=== PATIENT | female | born 1945 | race Caucasian/White ===

== ENCOUNTER 2017-03-04 22:44 | Inpatient (IN) ==
--- NOTE | 2017-03-04 23:00 | Emergency Department Note ---
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 had a modification within her medications only 1 of those medications has she made the change still waiting to fill her scripts for the other medications they stopped her Isorbid monohydrate and added a doubling of her Ranexa now she is weak and tired and nauseated and has no chest pressure no palpitations states she feels very sluggish and tired no energy apparently a home health nurse came to check on her and they checked her heart rate and blood pressure and advised her to come to the emergency room patient now presents with no symptoms other than feeling tired and no energy Pt Subjective Complaint: generalized weakness/fatigue Onset (ago): hour(s) (12) Duration: constant Location: generalized Migration: none Pain Severity: none Pain Scale: 0 Improves with: none Worsens with: none Context: new medication Associated symptoms: Denies: chest pain, confusion, dark stools, diaphoresis, dysuria, easy bruising, fever/chills, headaches, loss of appetite, nausea/ vomiting, myalgias, rash, shortness of breath, syncope - Related Data Home Medications Medication Instructions Recorded Confirmed Clopidogrel [Plavix] 75 mg PO DAILY 04/26/16 03/04/17 Nitroglycerin [Nitrostat] 0.4 mg SL AD PRN 04/26/16 03/04/17 Aspirin [Lo-Dose Aspirin EC] 81 mg PO DAILY 07/21/16 03/04/17 Furosemide [Lasix] 40 mg PO DAILY 07/21/16 03/04/17 GlipiZIDE [Glipizide ER] 2.5 mg PO DAILY 07/21/16 03/04/17 Metoprolol [Lopressor] 50 mg PO BID 07/21/16 03/04/17 SitaGLIPtin [Januvia] 100 mg PO DAILY 07/21/16 03/04/17 Allopurinol [Zyloprim 100 MG] 100 mg PO DAILY 11/22/16 03/04/17 Ferrous Sulfate [Iron] 325 mg PO DAILY 11/22/16 03/04/17 Potassium Chloride [K-Tab ER] 20 meq PO DAILY 11/22/16 03/04/17 Rosuvastatin [Crestor] 40 mg PO HS 11/22/16 03/04/17 amLODIPine [Norvasc] 10 mg PO DAILY 11/22/16 03/04/17 Docusate Sodium [Colace] 100 mg PO BID 03/04/17 03/04/17 Ranolazine [Ranexa] 1,000 mg PO BID 03/04/17 03/04/17 Sennosides [Senokot] 8.6 mg PO DAILY 03/04/17 03/04/17 Previous Rx's Medication Instructions Recorded Omeprazole [PriLOSEC] 20 mg PO DAILY #30 capsule. 05/09/16 Allergies Allergy/AdvReac Type Severity Reaction Status Date / Time atorvastatin [From Lipitor] AdvReac See Verified 11/22/16 17:22 Comments All systems ED: reviewed and negative except as stated. Constitutional: Denies: fever, chills, weakness Eyes: Denies: eye pain ENT ED: Denies: ear pain Cardiovascular: Reports: palpitations, syncope. Denies: chest pain Respiratory: Denies: cough, dyspnea Gastrointestinal: Denies: abdominal pain Genitourinary: Denies: urgency Musculoskeletal: Denies: back pain Integumentary: Denies: rash Neurological: Denies: headache Psychiatric: Denies: anxiety Endocrine: Denies: fatigue Hematological/Lymphatic: Denies: easy bleeding Past Medical History - Past Medical History Attestation: Yes The following information was validated with the patient. 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 - Social History Smoking Status: Never smoker Smokeless Tobacco Status: No Alcohol use: Reports: none Drug use: Reports: none Physical Exam - General Limitations: no limitations General appearance: alert, in no apparent distress - Head Head exam: atraumatic, normocephalic, normal inspection - Eye Eye exam: Present: normal appearance, PERRL, EOMI - ENT ENT exam: normal exam, normal oropharynx, mucous membranes moist, normal external ear exam - Neck Neck exam: Present: normal inspection, full ROM, trachea midline - Chest Chest inspection: Present: normal inspection, symmetric chest wall rise - Respiratory Respiratory exam: Present: normal lung sounds bilaterally - Cardiovascular Cardiovascular exam: Present: bradycardia, normal heart sounds - Abdominal Exam Abdominal exam: Present: soft, Non-Tender, normal bowel sounds. Absent: mass, pulsatile mass - Extremities Exam Extremities exam: Present: normal inspection, full ROM, normal capillary refill. Absent: tenderness, joint swelling - Expanded Lower Extremity Exam Neurovascular/Tendon exam: Present: normal capillary refill, normal fine/light touch Gait: observed and normal - Back Exam Back exam: Present: normal inspection, full ROM. Absent: muscle spasm - Neurological Exam Neurological exam: Present: alert, oriented X3, CN II-XII intact, normal gait - Psychiatric Psychiatric exam: Present: normal affect, normal mood - Skin Skin exam: Present: warm, dry, intact, normal color Course Course Narrative: Seen and examined laboratory data started patient is asymptomatic other than feeling tired at this time patient is tolerating a heart rate of 33-35 blood pressures maintaining stability 130s over 40s and O2 sats are 95% with respiratory rate of 20 - Reevaluation(s) Reevaluation #1: Results have returned and the patient was then transferred to [facility] I spoke with Dr. James most likely this is result of the Ranexa and the renal insufficiency/acute renal failure which is causing combination of complications of the Ranexa or vice versa as result that she has seen nephrology in the past hold all medications at this time admitted for observation at this time a shot aware that if condition worsens will be transferred immediately to [facility] Vital Signs Temperature 97.2 F L 03/04/17 22:47 Pulse Rate 38 03/04/17 22:47 Respiratory Rate 16 03/04/17 22:47 Blood Pressure 123/68 03/04/17 22:47 O2 Sat by Pulse Oximetry 99 03/04/17 22:47 Temperature 97.2 F L 03/04/17 22:50 Pulse Rate 38 03/04/17 22:50 Respiratory Rate 16 03/04/17 22:50 Blood Pressure 123/68 03/04/17 22:50 O2 Sat by Pulse Oximetry 99 03/04/17 22:50 Oxygen Delivery Oxygen Delivery Room Air Weakness - Differential Diagnosis Differential Diagnosis: Likely: acute myocardial infarction, dehydration, medication effect, metabolic - Medical Records Medical records reviewed: Yes I reviewed the patient's medical records. - Lab Data Lab results reviewed: Yes I reviewed the patient's lab results. Result diagrams: 03/04/17 23:15 03/04/17 23:15 Lab Results 03/04/17 03/04/17 03/04/17 Range/Units 23:15 23:15 23:15 WBC 11.7 H (4.3-11.1) K/mcL RBC 3.67 L (3.82-4.97) M/mcL Hgb 10.5 L (11.5-15.4) g/dL Hct 31.5 L (35.3-44.9) % MCV 85.8 (83.0-100.0) fL MCH 28.6 (28.0-33.3) pg MCHC 33.3 (31.6-35.5) g/dL RDW 16.3 H (11.5-14.5) % Plt Count 245 (140-400) K/mcL MPV 10.4 (9.4-12.4) fL Immature Gran % 0.5 (0-4) % Seg Neutrophils % 81.6 % Lymphocytes % 10.2 % Monocytes % 6.8 % Eosinophils % 0.6 % Basophils % 0.3 % Neutrophils # 9.6 H (1.6-8.9) K/mcL Lymphocytes # 1.2 (0.6-4.6) K/mcL Monocytes # 0.8 (0.0-1.3) K/mcL Eosinophils # 0.1 (0.0-0.6) K/mcL Basophils # 0.0 (0.0-0.2) K/mcL PT 12.0 (9.4-12.1) Seconds INR 1.1 APTT 28.4 (26.0-36.0) Seconds Sodium 135 L (136-145) mEq/L Potassium 5.4 H (3.5-4.5) mEq/L Chloride 99 (98-109) mEq/L Carbon Dioxide 19 (19-29) mEq/L BUN 45 H (7-20) mg/dL Creatinine 2.83 H (0.57-1.11) mg/dL Est GFR ( Amer) 20 L (> 60) Est GFR (Non-Af Amer) 16 L (> 60) BUN/Creatinine Ratio 16 (6-26) Glucose 257 H (70-99) mg/dL Calculated Osmolality 300 (280-300) Calcium 9.8 (8.6-10.8) mg/dL Magnesium 3.1 H (1.6-2.6) mg/dL Troponin I (0-0.03) ng/mL B-Natriuretic Peptide (0-100) pg/mL 03/04/17 03/04/17 Range/Units 23:15 23:15 WBC (4.3-11.1) K/mcL RBC (3.82-4.97) M/mcL Hgb (11.5-15.4) g/dL Hct (35.3-44.9) % MCV (83.0-100.0) fL MCH (28.0-33.3) pg MCHC (31.6-35.5) g/dL RDW (11.5-14.5) % Plt Count (140-400) K/mcL MPV (9.4-12.4) fL Immature Gran % (0-4) % Seg Neutrophils % % Lymphocytes % % Monocytes % % Eosinophils % % Basophils % % Neutrophils # (1.6-8.9) K/mcL Lymphocytes # (0.6-4.6) K/mcL Monocytes # (0.0-1.3) K/mcL Eosinophils # (0.0-0.6) K/mcL Basophils # (0.0-0.2) K/mcL PT (9.4-12.1) Seconds INR APTT (26.0-36.0) Seconds Sodium (136-145) mEq/L Potassium (3.5-4.5) mEq/L Chloride (98-109) mEq/L Carbon Dioxide (19-29) mEq/L BUN (7-20) mg/dL Creatinine (0.57-1.11) mg/dL Est GFR ( Amer) (> 60) Est GFR (Non-Af Amer) (> 60) BUN/Creatinine Ratio (6-26) Glucose (70-99) mg/dL Calculated Osmolality (280-300) Calcium (8.6-10.8) mg/dL Magnesium (1.6-2.6) mg/dL Troponin I 0.01 (0-0.03) ng/mL B-Natriuretic Peptide 1180 H (0-100) pg/mL - Radiology Data Radiology results reviewed: Yes I reviewed the patient's radiology results. - EKG Data EKG attestation: Yes I reviewed and interpreted this EKG. EKG results narrative: Sinus bradycardia rate 35 no P waves noted could be an underlying atrial fib QRS 116 QT 524 axis -20 I do not this see any P waves buried within the complexes or the P waves are just says of a supraventricular rhythm Critical Care Time Critical Care Time: Yes Total Critical Care Time: 40 Attestation: Critical care performed:40mins due to bradycardia symptomatic concerns are medication or metabolic-induced also considerations are for that of this being cardiac event consultations with Dr. James management of the patient's hyperkalemia as well as electrolyte imbalance 2 resolve the bradycardia Time is exclusive of separately billable procedures. Time includes: direct patient care, patient reassessment, coordination of patient care, interpretation of data (laboratory data, radiology data, and respiratory data), review of patient's medical records, medical consultation and documentation of patient care. Procedures included in critical care time: Procedures excluded from critical care time:
[2017-03-04] MEDS ORDERED: Ondansetron ODT 4 MG TAB.RAPDIS SL ONE (23:15)
[2017-03-04 23:25] LABS: Basophils % 0.3 %; Eosinophils # 0.1 K/mcL (0.0-0.6); Eosinophils % 0.6 %; Hematocrit 31.5 % (35.3-44.9); Hemoglobin 10.5 g/dL (11.5-15.4); Immature Granulocytes % 0.5 % (0-4); Lymphocytes # 1.2 K/mcL (0.6-4.6); Lymphocytes % 10.2 %; Mean Corpuscular HGB Conc 33.3 g/dL (31.6-35.5); Mean Corpuscular Hemoglobin 28.6 pg (28.0-33.3); Mean Corpuscular Volume 85.8 fL (83.0-100.0); Mean Platelet Volume 10.4 fL (9.4-12.4); Monocytes # 0.8 K/mcL (0.0-1.3); Monocytes % 6.8 %; Neutrophils # 9.6 K/mcL (1.6-8.9); Platelet Count 245 K/mcL (140-400); Red Blood Count 3.67 M/mcL (3.82-4.97); Red Cell Distribution Width 16.3 % (11.5-14.5); Segmented Neutrophils % 81.6 %
[2017-03-04 23:33] LABS: INR 1.1
[2017-03-04 23:35] LABS: Activated Partial Thrombo Time 28.4 Seconds (26.0-36.0)
[2017-03-04 23:44] LABS: Calcium 9.8 mg/dL (8.6-10.8); Magnesium 3.1 mg/dL (1.6-2.6); Potassium 5.4 mEq/L (3.5-4.5)
[2017-03-05] MEDS ORDERED: *HR* Dextrose 50 % in Water (Syg) 50 ML SYRINGE IVP PRN (00:44)
[2017-03-05] MEDS ORDERED: Ondansetron ODT 4 MG TAB.RAPDIS SL PRN (00:44)
[2017-03-05] MEDS ORDERED: Dextrose Gel 15 GM PO PRN ×2 (00:44)
[2017-03-05] MEDS ORDERED: D5% in Water 1,000 ML IVC PRN (00:44)
[2017-03-05] MEDS ORDERED: Naloxone 0.4 MG/ML INJ IVP PRN (00:44)
[2017-03-05] MEDS: 0.9 % Sodium Chloride 1,000 ML IVC SCH ×2 (01:00→15:54)
[2017-03-05] MEDS: Insulin LISPRO 300 UNITS/3 ML VIAL SQ SCH ×3 (07:35→16:35)
[2017-03-05] MEDS: Aspirin Enteric Coated 81 MG Tablet PO SCH (08:40)
[2017-03-05] MEDS: *HR* GlipiZIDE XL (24 HR) 2.5 MG TABLET PO SCH (08:40)
[2017-03-05] MEDS: *HR* SitaGLIPtin 25 MG TABLET PO SCH (08:40)
[2017-03-05] MEDS: Sennosides 8.6 MG TABLET PO SCH (08:40)
[2017-03-05] MEDS ORDERED: Furosemide 40 MG TABLET PO SCH (09:00)
[2017-03-05 09:22] LABS: Calcium 9.2 mg/dL (8.6-10.8); Magnesium 3.1 mg/dL (1.6-2.6)
--- NOTE | 2017-03-05 11:16 | Internal Med History&Physical ---
Date of Encounter: 03/05/17 Time of Encounter: 10:45 Assessment and Plan (1) Symptomatic bradycardia Current visit: Yes Status: Acute Rhythm strip show junctional rhythm. Will hold Ranexa and metoprolol and continue to monitor. (2) Acute renal failure superimposed on stage 3 chronic kidney disease Current visit: Yes Status: Acute Will hold Lasix and give gentle IV hydration. (3) Hyperuricemia Current visit: No Status: Chronic We will check uric acid level in a.m. Continue allopurinol for now. (4) Hyperkalemia Current visit: Yes Status: Acute We will give IV fluids and hold supplemental potassium. Recheck labs in a.m. (5) Hypermagnesemia Current visit: Yes Status: Acute We will give IV fluids and recheck labs in a.m. (6) Neutrophilic leukocytosis Current visit: Yes Status: Acute Will check UA. Recheck labs in a.m. We will not give antibiotics at this time since she is asymptomatic. Internal Medicine - H&P: HPI Chief complaint: Bradycardia Admitted From: Home Plans for Post Hospital Care: Home History of present illness: Ms. Pelletier is a 72 year old female who was directed to come to emergency room after a home health nurse who was evaluating her in the home examined the patient when she complained she did not feel well. She had 2 episodes of diarrhea and 3 episodes of vomiting earlier in the day. Her heart rate was found by the nurse to be 35-40. She was evaluated in emergency room and was found to have bradycardia, hyperkalemia, hypermagnesemia, and elevated BN peptide. She was admitted to [facility] floor for ongoing care needs. She denies previous episodes of bradycardia. 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 She has known ASHD and has 7 coronary stents. Her most recent catheter was May 2017 [place] when a single stent was placed. She denies [place], heart failure DVT or pulmonary embolus. She has a history of hypertension. She denies pain or dyspnea at the present time. Past Med Surg Social Fam HX - Past Medical History Medical history: CHF, coronary artery disease, diabetes, hyperlipidemia, hypertension, myocardial infarction Psychiatric history: anxiety - Past Surgical History Surgical History: angioplasty/stent, appendectomy - Social History Smoking Status: Never smoker Smokeless Tobacco Status: No Alcohol use: none Drug use: none - Family History Father Living Status: Hx Family Cardiac Disorders: Yes Hx Family Endocrine Disorder: Yes (DM) Mother Adopted: No Family Member Ethnicity: Non- Living Status: Hx Family Cardiac Disorders: Yes (CHF) Hx Family Respiratory Disorders: No Hx Family Cancer: No Hx Family GI Disorders: No Hx Family Endocrine Disorder: Yes (Diabetes) Hx Family Neuromuscular Disorders: No Hx Family Neurologic Disorders: No Hx Family HEENT Disorders: No Hx Family Autoimmune Disorders: No Internal Medicine - H&P: Meds Clopidogrel [Plavix] 75 mg PO DAILY 04/26/16 [History] Nitroglycerin [Nitrostat] 0.4 mg SL AD PRN 04/26/16 [History] Omeprazole [PriLOSEC] 20 mg PO DAILY #30 capsule. 05/09/16 [Rx] Aspirin [Lo-Dose Aspirin EC] 81 mg PO DAILY 07/21/16 [History] Furosemide [Lasix] 40 mg PO DAILY 07/21/16 [History] GlipiZIDE [Glipizide ER] 2.5 mg PO DAILY 07/21/16 [History] Metoprolol [Lopressor] 50 mg PO BID 07/21/16 [History] SitaGLIPtin [Januvia] 100 mg PO DAILY 07/21/16 [History] Allopurinol [Zyloprim 100 MG] 100 mg PO DAILY 11/22/16 [History] Ferrous Sulfate [Iron] 325 mg PO DAILY 11/22/16 [History] Potassium Chloride [K-Tab ER] 20 meq PO DAILY 11/22/16 [History] Rosuvastatin [Crestor] 40 mg PO HS 11/22/16 [History] amLODIPine [Norvasc] 10 mg PO DAILY 11/22/16 [History] Docusate Sodium [Colace] 100 mg PO BID 03/04/17 [History] Ranolazine [Ranexa] 1,000 mg PO BID 03/04/17 [History] Sennosides [Senokot] 8.6 mg PO DAILY 03/04/17 [History] Allergies atorvastatin [From Lipitor] Adverse Reaction (Verified 11/22/16 17:22) See Comments body aches and pains All Systems PM: A 10-system review of systems was performed and is negative for pertinent findings except as documented above in the HPI. Review of systems: Gen.: Her weight has been stable past few months at approximately 72 kg. Cardiovascular: As per history of present illness Respiratory: She is a lifelong nonsmoker and denies known chronic lung disease. Chest CT done 04/29/2016 showed patchy bilateral groundglass opacities most prominently in the right upper lobe. GI: She denies disorders of her liver gallbladder or exocrine pancreas : She has CKD stage III. She saw a cover creaser on one occasion at [place] and was told she did not need to return. She denies other kidney or bladder disorders. Neurologic: She denies large distribution strokes or seizures Endocrine: She was diagnosed with DM 2 approximately 1979. She has hyperlipidemia but denies thyroid disease Hematology/oncology: She has anemia with testing done 03/29/2016 showing no factor deficiency. She denies internal malignancies Psychiatric: She has feelings of anxiety and depression at times but does not take medication for these [place] skeletal: She has DJD and hyperuricemia but denies osteoporosis. - Constitutional Vitals: Temp Pulse Resp BP Pulse Ox 97.9 F 40 16 125/54 96 03/05/17 06:48 03/05/17 07:13 03/05/17 06:48 03/05/17 06:48 03/05/17 06:48 Exam: Gen.: She is well-developed well-nourished female lying in bed who appears in no acute distress HEENT: Head is atraumatic and normocephalic. Eyes: EOMI. There is no scleral icterus. Mouth: Mucosa is moist. Neck: Supple and nontender. There is no thyromegaly or adenopathy noted. Heart: Regular without murmurs gallops or ectopics. She has bradycardia with rate approximately 40/m Lungs: No wheezes or crackles are heard. Abdomen: Soft and nontender. No masses or guarding are noted. Extremities: There is no cyanosis edema or clubbing noted. Dorsalis pedis and posterior tibial pulses are trace to 1+ palpable bilaterally. Neurologic: Mental status: She is talkative and a good historian. Cranial nerves: Smile is symmetric. Forehead wrinkles bilaterally. Tongue protrudes midline. EOMI. Motor: There is no pronator drift. Cerebellar: Finger to nose intact bilaterally. Skin: Warm and dry Internal Med - H&P Results - Labs CBC & Chem 7: 03/04/17 23:15 03/05/17 08:56 Labs: BMP 03/05/17 08:56 Sodium 133 L Potassium 5.0 H Chloride 98 Carbon Dioxide 21 BUN 46 H Creatinine 2.85 H Glucose 196 H Calcium 9.2 Cardiac Enzymes 03/05/17 Range/Units 08:56 Troponin I 0.01 (0-0.03) ng/mL
[2017-03-05] MEDS: Isosorbide MONOnitrate (24 HR) 60 MG TAB.ER.24H PO SCH (11:54)
[2017-03-05 19:17] LABS: Bilirubin,Urine Small (Negative); Blood,Urine Negative (Negative); Color,Urine Dark Yellow (Yellow); Glucose,Urine (UA) Normal (Normal); Ketones,Urine Negative (Negative); Leukocyte Esterase,Urine Negative (Negative); Nitrite,Urine Negative (Negative); PH,Urine 5.5 pH Units (5.0-8.0); Protein,Urine 100 mg/dL (Neg-Trace); Specific Gravity,Urine 1.025 (1.010-1.025); Urobilinogen,Urine Normal (Normal)
[2017-03-05 19:39] LABS: Clarity,Urine Cloudy (Clear)
[2017-03-05 19:48] LABS: Bacteria,Urine Many per hpf (None-Few); Hyaline Casts,Urine Many per lpf (None-Few); Squamous Epithelial Cell,Urine Many per lpf (None-Few)
[2017-03-05 20:04] LABS: Transitional Epi Cells,Urine Few per hpf (None-Few)
[2017-03-05 20:05] LABS: RBC,Urine 0-3 per hpf (0-3)
[2017-03-06] MEDS ORDERED: Mag Hydrox/Al Hydrox/Simeth 30 ML UDC PO PRN (01:01)
[2017-03-06] MEDS ORDERED: Nitroglycerin 0.4 MG TAB.SUBL SL PRN (01:01)
[2017-03-06] MEDS ORDERED: Furosemide 20 MG/2 ML VIAL IVP ONE ×4 (01:37→01:47)
[2017-03-06 01:43] LABS: ABG PCO2 30 mmHg (35-45); ABG PH 7.41 pH Units (7.32-7.45)
[2017-03-06 01:44] LABS: ABG Base Excess -5.4 mEq/L (-2.0 to 3.0); ABG HCO3 19.2 mEQ/L (21-27); ABG PO2 43 mmHg (85-104); ABG TCO2 20.2 mEq/L (20-26)
[2017-03-06 01:45] LABS: ABG Oxygen Saturation 80 % (95-98)
--- NOTE | 2017-03-06 01:56 | Internal Med Progress Note ---
Date of Encounter: 03/06/17 Time of Encounter: 01:54 - Time Spent With Patient Greater than 35 minutes (Patient was evaluated patient was noted to have crackles and rales throughout the lung saavedra placed her on BiPAP gave her an additional 20 mg of Lasix and also had Harkins catheter placed chest x-ray was ordered for reevaluation of the lung saavedra) - Subjective Interval history: pt showed signifigant improval post bipap and repeat ekg showed resolution to baseline and chest xray showed pulmonary edema asper the radiologist 1 view portable - Constitutional Vitals: Temp Pulse Resp BP Pulse Ox 98.1 F 81 18 147/66 93 03/06/17 00:49 03/06/17 00:49 03/06/17 00:49 03/06/17 00:49 03/06/17 00:49 - Neck Neck exam general surgery: Present: full ROM - Respiratory Respiratory exam: Present: decreased breath sounds, prolonged expiratory phase, rales, respiratory distress, tachypnea - Cardiovascular Cardiovascular exam: Present: RRR - Expanded Lower Extremities Exam Hip exam: Absent: swelling Upper Leg exam: Absent: swelling Knee exam: Absent: swelling Lower Leg exam: Absent: swelling Ankle exam: Absent: swelling - Psychiatric Psychiatric exam: Present: anxious Internal Medicine: Result - Labs CBC & Chem 7: 03/04/17 23:15 03/05/17 08:56 Labs: BMP 03/05/17 08:56 Sodium 133 L Potassium 5.0 H Chloride 98 Carbon Dioxide 21 BUN 46 H Creatinine 2.85 H Glucose 196 H Calcium 9.2 Cardiac Enzymes 03/05/17 Range/Units 08:56 Troponin I 0.01 (0-0.03) ng/mL Urine 03/05/17 Range/Units 19:00 Urine Color Dark Yellow (Yellow) Urine Clarity Cloudy A (Clear) Urine pH 5.5 (5.0-8.0) pH Units Ur Specific [place] 1.025 (1.010-1.025) Urine Protein 100 H (Neg-Trace) mg/dL Urine Glucose (UA) Normal (Normal) mg/dL - ABG Interpretation ABG results: ABG ABG pH 7.41 pH Units (7.32-7.45) 03/06/17 01:37 ABG pCO2 30 mmHg (35-45) L 03/06/17 01:37 ABG pO2 43 mmHg (85-104) L* 03/06/17 01:37 ABG O2 Saturation 80 % (95-98) L 03/06/17 01:37 PT/INR, D-dimer PT 12.0 Seconds (9.4-12.1) 03/04/17 23:15 - EKG Data interpreted by ERMD Rhythm: other (Sinus rhythm interventricular conduction delay T-wave depression throughout the leads no ST segment elevation slight change from previous with strain pattern being noted rate 81 NJ-2 O2 QRS 142 QT 399 axis -16 patient's heart rate has improved significantly since previous admission record heart rate of 35) Consult Discharge Plan - Plan Referrals: Amy Roblero MD [Primary Care Provider] - 1 week
[2017-03-06 02:29] LABS: Blood Gas FiO2 99 %; Blood Gas Liter Flow 15 L/MIN
[2017-03-06 06:39] LABS: Basophils % 0.2 %; Eosinophils % 0.3 %; Hematocrit 26.8 % (35.3-44.9); Hemoglobin 9.1 g/dL (11.5-15.4); Immature Granulocytes % 0.7 % (0-4); Lymphocytes # 0.8 K/mcL (0.6-4.6); Lymphocytes % 7.8 %; Mean Corpuscular Hemoglobin 28.1 pg (28.0-33.3); Mean Corpuscular Volume 82.7 fL (83.0-100.0); Mean Platelet Volume 10.7 fL (9.4-12.4); Monocytes # 0.6 K/mcL (0.0-1.3); Monocytes % 6.1 %; Neutrophils # 8.4 K/mcL (1.6-8.9); Platelet Count 199 K/mcL (140-400); Red Blood Count 3.24 M/mcL (3.82-4.97); Red Cell Distribution Width 15.9 % (11.5-14.5); Segmented Neutrophils % 84.9 %
[2017-03-06 06:56] LABS: Albumin 3.4 g/dL (3.5-5.0); Albumin/Globulin Ratio 1.2 (1.1-2.2); Bilirubin,Total 0.5 mg/dL (0.2-1.2); Calcium 8.8 mg/dL (8.6-10.8); Globulin 2.9 g/dL (2.4-3.5); Magnesium 2.8 mg/dL (1.6-2.6); Potassium 4.5 mEq/L (3.5-4.5); Total Protein 6.3 g/dL (6.0-8.3); Uric Acid 5.8 mg/dL (2.6-6.0)
[2017-03-06] MEDS: Sennosides 8.6 MG TABLET PO SCH (07:41)
[2017-03-06] MEDS: Isosorbide MONOnitrate (24 HR) 60 MG TAB.ER.24H PO SCH (07:41)
[2017-03-06] MEDS: Aspirin Enteric Coated 81 MG Tablet PO SCH (07:42)
[2017-03-06] MEDS: *HR* GlipiZIDE XL (24 HR) 2.5 MG TABLET PO SCH (07:42)
[2017-03-06] MEDS: Insulin LISPRO 300 UNITS/3 ML VIAL SQ SCH ×4 (07:42→22:25)
[2017-03-06] MEDS: *HR* SitaGLIPtin 25 MG TABLET PO SCH (07:42)
--- NOTE | 2017-03-06 09:59 | Internal Med Progress Note ---
Date of Encounter: 03/06/17 Time of Encounter: 09:45 - Assessment and plan (1) Symptomatic bradycardia Current Visit: Yes Status: Acute Assessment and plan: March 06. Resolved. Continue to withhold Ranexa. We will restart metoprolol at lower dose. (2) Acute renal failure superimposed on stage 3 chronic kidney disease Current Visit: Yes Status: Acute Assessment and plan: March 06. Creatinine slightly improved. We will recheck labs in a.m. (3) Hyperuricemia Current Visit: No Status: Chronic Assessment and plan: March 06. Uric acid level acceptable at 5.8. Continue allopurinol. (4) Hyperkalemia Current Visit: Yes Status: Acute Assessment and plan: March 06. Resolved. Continue to hold supplemental potassium. Recheck labs in a.m. (5) Hypermagnesemia Current Visit: Yes Status: Acute Assessment and plan: March 06. Improved. Recheck labs in a.m. (6) Neutrophilic leukocytosis Current Visit: Yes Status: Acute Assessment and plan: March 06. WBC normalized but left shift still present. She remains afebrile. We will recheck labs in a.m. (7) Anemia Current Visit: Yes Status: Acute Assessment and plan: March 06. We will order anemia testing in a.m. Qualifiers: Anemia type: unspecified type Qualified Code(s): D64.9 - Anemia, unspecified - Subjective Interval history: March 06. 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 She had adequate diuresis response and her breathing now is back to baseline. EKG was ordered which showed nonspecific IVCD which resolved on follow-up EKG less than 2 hours later. She denies chest pain at any time. - Constitutional Vitals: Temp Pulse Resp BP Pulse Ox 98.8 F 83 24 135/68 99 03/06/17 06:35 03/06/17 06:35 03/06/17 06:35 03/06/17 06:35 03/06/17 06:35 Exam: She is resting comfortably in bed and appears in no acute distress. Heart is regular with rate approximately 80/m on telemetry. Lungs are clear. I reviewed her medications and lab results. Internal Medicine: Result - Labs CBC & Chem 7: 03/06/17 05:15 03/06/17 05:15 Labs: Short CBC 03/06/17 Range/Units 05:15 WBC 9.9 (4.3-11.1) K/mcL Hgb 9.1 L (11.5-15.4) g/dL Hct 26.8 L (35.3-44.9) % Plt Count 199 (140-400) K/mcL Neutrophils # 8.4 (1.6-8.9) K/mcL BMP 03/06/17 05:15 Sodium 130 L Potassium 4.5 Chloride 97 L Carbon Dioxide 19 BUN 46 H Creatinine 2.53 H Glucose 273 H Calcium 8.8 Liver Function 03/06/17 Range/Units 05:15 Total Bilirubin 0.5 (0.2-1.2) mg/dL AST 32 (5-34) Units/L ALT 28 (0-55) Units/L Alkaline Phosphatase 63 (38-126) Units/L Albumin 3.4 L (3.5-5.0) g/dL Urine 03/05/17 Range/Units 19:00 Urine Color Dark Yellow (Yellow) Urine Clarity Cloudy A (Clear) Urine pH 5.5 (5.0-8.0) pH Units Ur Specific [place] 1.025 (1.010-1.025) Urine Protein 100 H (Neg-Trace) mg/dL Urine Glucose (UA) Normal (Normal) mg/dL - ABG Interpretation ABG results: ABG ABG pH 7.41 pH Units (7.32-7.45) 03/06/17 01:37 ABG pCO2 30 mmHg (35-45) L 03/06/17 01:37 ABG pO2 43 mmHg (85-104) L* 03/06/17 01:37 ABG O2 Saturation 80 % (95-98) L 03/06/17 01:37 PT/INR, D-dimer PT 12.0 Seconds (9.4-12.1) 03/04/17 23:15 - Impressions Impressions Chest X-Ray 03/06/17 01:33 IMPRESSION: Findings likely represent progressive congestive heart failure. D/ / Nikos Bryant MD / Nikos Bryant MD Interpreting Provider: Nikos Bryant MD Consult Discharge Plan - Plan Referrals: Amy Roblero MD [Primary Care Provider] - 1 week
[2017-03-06] MEDS: *HR* Enoxaparin 30 MG/0.3 ML SYRINGE SQ SCH (14:57)
--- NOTE | 2017-03-06 18:18 | Electrocardiograph Report ---
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
--- NOTE | 2017-03-06 18:26 | Electrocardiograph Report ---
[address] [place], [place] [address] Test Date: 2017-03-06 Pat Name: Yolette Pelletier Department: 9202 Room: 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
--- NOTE | 2017-03-06 18:29 | Electrocardiograph Report ---
[address] [place], [place] [address] Test Date: 2017-03-04 Pat Name: Yolette Pelletier Department: [id number] Room: [facility] Gender: F Staff Radiologist: Zia : 1945 Requested By: Regina Montiel Order Number: [id number] Reading MD: Bessy Hernandez Measurements Intervals [place] Rate: 35 P: [place]: 0 QRS: -20 QRSD: 116 T: 13 QT: 524 QTc: 423 Interpretive Statements JUNCTIONAL ESCAPE RHYTHM IVCD NONSPECIFIC ST ABNORMALITIES Electronically Signed On 03-06-2017 18:27:44 EDT by Bessy Hernandez
[2017-03-07] MEDS: *HR* Enoxaparin 30 MG/0.3 ML SYRINGE SQ SCH (06:18)
[2017-03-07 06:39] LABS: Basophils % 0.2 %; Eosinophils # 0.2 K/mcL (0.0-0.6); Eosinophils % 2.6 %; Hematocrit 25.2 % (35.3-44.9); Hemoglobin 8.4 g/dL (11.5-15.4); Immature Granulocytes % 0.4 % (0-4); Lymphocytes # 1.1 K/mcL (0.6-4.6); Lymphocytes % 13.3 %; Mean Corpuscular HGB Conc 33.3 g/dL (31.6-35.5); Mean Corpuscular Hemoglobin 28.3 pg (28.0-33.3); Mean Corpuscular Volume 84.8 fL (83.0-100.0); Mean Platelet Volume 10.8 fL (9.4-12.4); Monocytes # 0.7 K/mcL (0.0-1.3); Neutrophils # 6.1 K/mcL (1.6-8.9); Platelet Count 166 K/mcL (140-400); Red Blood Count 2.97 M/mcL (3.82-4.97); Red Cell Distribution Width 16.3 % (11.5-14.5); Segmented Neutrophils % 75.5 %
[2017-03-07 06:51] LABS: Calcium 9.2 mg/dL (8.6-10.8); Magnesium 2.6 mg/dL (1.6-2.6); Potassium 4.6 mEq/L (3.5-4.5)
[2017-03-07] MEDS ORDERED: MOM Conc 10 ML UD.LIQ PO PRN (08:12)
[2017-03-07] MEDS: *HR* SitaGLIPtin 25 MG TABLET PO SCH (08:14)
[2017-03-07] MEDS: *HR* GlipiZIDE XL (24 HR) 2.5 MG TABLET PO SCH (08:14)
[2017-03-07] MEDS: Sennosides 8.6 MG TABLET PO SCH (08:15)
[2017-03-07] MEDS: Aspirin Enteric Coated 81 MG Tablet PO SCH (08:15)
[2017-03-07] MEDS: Bumetanide 1 MG TABLET PO SCH (08:15)
[2017-03-07] MEDS: Isosorbide MONOnitrate (24 HR) 60 MG TAB.ER.24H PO SCH (08:15)
[2017-03-07] MEDS: Insulin LISPRO 300 UNITS/3 ML VIAL SQ SCH ×4 (08:16→20:14)
[2017-03-07 10:20] LABS: Folate 15.7 ng/mL (7.0-31.4)
--- NOTE | 2017-03-07 15:12 | Internal Med Progress Note ---
Date of Encounter: 03/07/17 Time of Encounter: 15:00 - Assessment and plan (1) Symptomatic bradycardia Current Visit: Yes Status: Acute Assessment and plan: March 06. Resolved. Continue to withhold Ranexa. We will restart metoprolol at lower dose. March 07. Remains resolved. (2) Acute renal failure superimposed on stage 3 chronic kidney disease Current Visit: Yes Status: Acute Assessment and plan: March 06. Creatinine slightly improved. We will recheck labs in a.m. March 07. Creatinine significantly improved. Continue present regimen (3) Hyperuricemia Current Visit: No Status: Chronic Assessment and plan: March 06. Uric acid level acceptable at 5.8. Continue allopurinol. (4) Hyperkalemia Current Visit: Yes Status: Acute Assessment and plan: March 06. Resolved. Continue to hold supplemental potassium. Recheck labs in a.m. (5) Neutrophilic leukocytosis Current Visit: Yes Status: Acute Assessment and plan: March 06. WBC normalized but left shift still present. She remains afebrile. We will recheck labs in a.m. March 07. WBC remains normal with left shift improved. Continue to observe without antibiotics. (6) Anemia Current Visit: Yes Status: Acute Assessment and plan: March 06. We will order anemia testing in a.m. March 07. Anemia testing consistent with iron deficiency. She is not absorbing oral iron supplement adequately possibly secondary to concurrent PPI usage. I will give her IV iron dextran. Qualifiers: Anemia type: unspecified type Qualified Code(s): D64.9 - Anemia, unspecified - Subjective Interval history: March 06. She had a severe episode of dyspnea in the gameroom technician hours requiring IV Lasix and application of BiPAP. She had adequate diuresis response and her breathing now is back to baseline. EKG was ordered which showed nonspecific IVCD which resolved on follow-up EKG less than 2 hours later. She denies chest pain at any time. March 07. She has no new complaints and feels well. - Constitutional Vitals: Temp Pulse Resp BP Pulse Ox 98.3 F 84 16 129/51 97 03/07/17 11:10 03/07/17 11:10 03/07/17 11:10 03/07/17 11:10 03/07/17 11:10 Exam: She is resting comfortably in bed and appears in no acute distress. Her affect is bright and cheerful. I reviewed her medications and lab results. Internal Medicine: Result - Labs CBC & Chem 7: 03/07/17 05:20 03/07/17 05:20 Labs: Short CBC 03/07/17 Range/Units 05:20 WBC 8.1 (4.3-11.1) K/mcL Hgb 8.4 L (11.5-15.4) g/dL Hct 25.2 L (35.3-44.9) % Plt Count 166 (140-400) K/mcL Neutrophils # 6.1 (1.6-8.9) K/mcL BMP 03/07/17 05:20 Sodium 139 D Potassium 4.6 H Chloride 105 Carbon Dioxide 21 BUN 30 H D Creatinine 1.62 H Glucose 118 H Calcium 9.2 - ABG Interpretation ABG results: ABG ABG pH 7.41 pH Units (7.32-7.45) 03/06/17 01:37 ABG pCO2 30 mmHg (35-45) L 03/06/17 01:37 ABG pO2 43 mmHg (85-104) L* 03/06/17 01:37 ABG O2 Saturation 80 % (95-98) L 03/06/17 01:37 PT/INR, D-dimer PT 12.0 Seconds (9.4-12.1) 03/04/17 23:15 Consult Discharge Plan - Plan Referrals: Amy Roblero MD [Primary Care Provider] - 1 week
[2017-03-07] MEDS ORDERED: IRON DEXTRAN COMPLEX IVPB ONE (17:00)
[2017-03-07] MEDS ORDERED: SODIUM CHLORIDE 0.9% IVPB ONE (17:00)
[2017-03-08] MEDS: *HR* Enoxaparin 30 MG/0.3 ML SYRINGE SQ SCH (06:13)
[2017-03-08 06:23] LABS: Basophils % 0.2 %; Eosinophils # 0.3 K/mcL (0.0-0.6); Eosinophils % 3.8 %; Hematocrit 25.8 % (35.3-44.9); Hemoglobin 8.5 g/dL (11.5-15.4); Immature Granulocytes % 0.4 % (0-4); Lymphocytes # 1.4 K/mcL (0.6-4.6); Lymphocytes % 16.7 %; Mean Corpuscular HGB Conc 32.9 g/dL (31.6-35.5); Mean Corpuscular Hemoglobin 28.6 pg (28.0-33.3); Mean Corpuscular Volume 86.9 fL (83.0-100.0); Mean Platelet Volume 11.2 fL (9.4-12.4); Monocytes # 0.9 K/mcL (0.0-1.3); Neutrophils # 5.7 K/mcL (1.6-8.9); Platelet Count 189 K/mcL (140-400); Red Blood Count 2.97 M/mcL (3.82-4.97); Red Cell Distribution Width 16.6 % (11.5-14.5); Segmented Neutrophils % 67.9 %
[2017-03-08 06:44] LABS: Potassium 4.7 mEq/L (3.5-4.5)
[2017-03-08 06:45] LABS: Calcium 9.2 mg/dL (8.6-10.8)
[2017-03-08 07:08] VITALS: BP 146/67
[2017-03-08] MEDS ORDERED: Sulfamethoxazole/Trimeth DS 1 EACH TABLET PO ONE (07:09)
[2017-03-08] MEDS: *HR* GlipiZIDE XL (24 HR) 2.5 MG TABLET PO SCH (07:50)
[2017-03-08] MEDS: Insulin LISPRO 300 UNITS/3 ML VIAL SQ SCH ×2 (07:51→09:02)
[2017-03-08] MEDS: Bumetanide 1 MG TABLET PO SCH (09:19)
[2017-03-08] MEDS: Sennosides 8.6 MG TABLET PO SCH (09:20)
[2017-03-08] MEDS: Isosorbide MONOnitrate (24 HR) 60 MG TAB.ER.24H PO SCH (09:20)
[2017-03-08] MEDS: *HR* SitaGLIPtin 25 MG TABLET PO SCH (09:21)
[2017-03-08] MEDS: Aspirin Enteric Coated 81 MG Tablet PO SCH (09:23)
--- NOTE | 2017-03-08 09:42 | Discharge Summary ---
Date of Encounter: 03/08/17 Time of Encounter: 09:30 - Discharge Diagnosis (1) Symptomatic bradycardia Priority: Primary Status: Acute (2) Acute renal failure superimposed on stage 3 chronic kidney disease Priority: Secondary Status: Acute (3) Hyperuricemia Priority: Secondary Status: Chronic (4) Hyperkalemia Priority: Secondary Status: Acute (5) Neutrophilic leukocytosis Priority: Secondary Status: Acute (6) Anemia Priority: Secondary Status: Acute Qualifiers: Anemia type: unspecified type Qualified Code(s): D64.9 - Anemia, unspecified - Discharge Medications Prescriptions: Bumetanide [Bumex] 0.5 mg PO DAILY #15 tablet Isosorbide MONOnitrate (24 HR) [Imdur] 120 mg PO DAILY #60 tab.er.24h Sulfamethoxazole/Trimeth DS [Bactrim DS] 1 each PO BID #5 tablet Home Medications: Clopidogrel [Plavix] 75 mg PO DAILY 04/26/16 [History] Nitroglycerin [Nitrostat] 0.4 mg SL AD PRN 04/26/16 [History] Omeprazole [PriLOSEC] 20 mg PO DAILY #30 capsule. 05/09/16 [Rx] Aspirin [Lo-Dose Aspirin EC] 81 mg PO DAILY 07/21/16 [History] GlipiZIDE [Glipizide ER] 2.5 mg PO DAILY 07/21/16 [History] Metoprolol [Lopressor] 50 mg PO BID 07/21/16 [History] SitaGLIPtin [Januvia] 100 mg PO DAILY 07/21/16 [History] Allopurinol [Zyloprim 100 MG] 100 mg PO DAILY 11/22/16 [History] Rosuvastatin [Crestor] 40 mg PO HS 11/22/16 [History] amLODIPine [Norvasc] 10 mg PO DAILY 11/22/16 [History] Docusate Sodium [Colace] 100 mg PO BID 03/04/17 [History] Sennosides [Senokot] 8.6 mg PO DAILY 03/04/17 [History] Bumetanide [Bumex] 0.5 mg PO DAILY #15 tablet 03/08/17 [Rx] Isosorbide MONOnitrate (24 HR) [Imdur] 120 mg PO DAILY #60 tab.er.24h 03/08/17 [ Rx] Ranolazine [Ranexa] 500 mg PO BID #0 03/08/17 [Rx] Sulfamethoxazole/Trimeth DS [Bactrim DS] 1 each PO BID #5 tablet 03/08/17 [Rx] Allergies/Adverse Reactions: Allergies atorvastatin [From Lipitor] Adverse Reaction (Verified 11/22/16 17:22) See Comments body aches and pains Date of admission: 03/06/17 10:10 Primary care physician: Amy Roblero - Patient Status Disposition: Home, Self-Care Condition: Fair Functional capacity at discharge: independent ambulation Overall status at discharge: patient is progressing back to baseline - Discharge Instructions Follow Up With: Amy Roblero MD [Primary Care Provider] - 1 week - Diet and Activity Activity: resume usual activities as tolerated Diet: advance to your usual diet Hospital course: Ms. Pelletier is a 72 year old female who was directed to come to emergency room after a home health nurse who was evaluating her in the home examined the patient when she complained she did not feel well. She had 2 episodes of diarrhea and 3 episodes of vomiting earlier in the day. Her heart rate was found by the nurse to be 35-40. She was evaluated in emergency room and was found to have bradycardia, hyperkalemia, hypermagnesemia, and elevated BN peptide. She was admitted to [facility] for ongoing care needs. Initial orders were written by the emergency room physician. I saw her March 05 and performed the history and physical. The Ranexa and metoprolol were initially held. The patient remained in junctional regimen for the first 24 hours. She converted to normal sinus rhythm with heart rate approximately 80. Her blood pressure remained satisfactory. She will be started back on her previous dose of Ranexa 500 mg twice a day and resume her previous metoprolol dose at discharge. Isosorbide was restarted at 120 mg daily. Lasix was held and IV fluids were initially given. Her azotemia improved with BUN and creatinine being 29 and 1.57 respectively by the day of discharge. She was started on Bumex 0.5 mg daily and had good diuresis. Supplemental potassium was discontinued and potassium level was 4.7 on the day of discharge. Anemia testing showed iron 14, transferrin saturation 5%, transferrin 201, ferritin 303, B12 4:15, and folate 15.7. I did not feel she was absorbing oral ferrous sulfate adequately, perhaps in part due to concurrent use of PPI. She was given IV iron dextran. Ferrous sulfate will be held at discharge. Urine culture returned showing Escherichia coli. She will be given Septra DS to complete a 3 day course. On March 08 she felt significantly improved and stable for discharge home. She will follow with her PCP Dr. Roblero within 1 week. She will follow with her recycling assistant as directed. - Time Spent with Patient Total time spent providing and/or coordinating discharge services: - Constitutional Vitals: Temp Pulse Resp BP Pulse Ox 98.2 F 77 18 146/67 97 03/08/17 07:06 03/08/17 07:06 03/08/17 07:06 03/08/17 07:06 03/08/17 07:06
== END 2017-03-08 11:05 | disposition home or self-care (01) ==
LOC: INPPIK 22:44 → EMEROOPIK 22:44 → INPPIK 03-05 01:35
PROVIDERS: ADMIT Internal Medicine; ATTEND Internal Medicine